=== PATIENT | male | born 1995 | race African-American/Black ===

== ENCOUNTER 2018-08-14 13:27 | Emergency (ER) | payer MEDICAID ==
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
== END 2018-08-14 14:33 | disposition home or self-care (01) ==
LOC: ER 13:27
DX: S20.212A Contusion of left front wall of thorax, initial encounter (principal); S23.41XA Sprain of ribs, initial encounter; S29.011A Strain of muscle and tendon of front wall of thorax, initial encounter; Y04.8XXA Assault by other bodily force, initial encounter; Y93.89 Activity, other specified; Y92.89 Other specified places as the place of occurrence of the external cause; Y99.8 Other external cause status